=== PATIENT | female | born 1990 | race Caucasian/White ===

== ENCOUNTER 2024-08-05 02:42 | Outpatient (CLI) | payer OTHER, SELFPAY ==
--- NOTE | 2024-08-05 20:36 | PDOC.EEG ---
Neurology EEG EEG: [facility] Department of Neurology EEG REPORT Date of Recordin08/05/24 Interpreting Physician: Dr. Luma Tidwell PCP/Referring Provider: Dr. Joceline Esquivel Reason for study: Mounika Dawkins is a 34 year-old with recent episode of LOC concerning for seizure. Current Medications: Home Medications ?Medication ?Instructions ?Recorded ?Confirmed ?Type L norgest/E estradiol-E estrad 1 tab PO DAILY 07/03/24 07/24/24 History 0.15 mg-30 mcg (84)/10 mcg(7) tabs,3mos (Jaimiess) cholecalciferol (vitamin D3) 50 50 mcg PO DAILY 07/03/24 07/24/24 History mcg (2,000 unit) capsule multivitamin 1 tab PO DAILY 07/03/24 07/24/24 History METHODS: A 21 channel digitized electroencephalogram was performed in the [facility]. The 10/20 international system of electrode placement was used and bipolar and referential electrode montages were recorded. In addition to EEG the patient was monitored for EKG and lateral/vertical eye movements. Activation procedures of photic stimulation and hyperventilation were performed if applicable. Video was used during activation procedures and during events where applicable. The duration of the recording was 30 minutes. DESCRIPTION OF EEG: The patient was noted to be awake and drowsy during the recording. During maximal wakefulness a 10-Hz posterior background rhythm was present which was well-modulated, symmetrical, reactive to eye opening, and of moderate voltage. With eye opening the background activity changed to a low voltage mixture of alpha, beta, and occasional theta range frequencies. Faster frequencies were present in the bilateral anterior head regions. There was a normal anterior-posterior voltage gradient. During drowsiness, there was attenuation of the posterior dominant background rhythm and vertex waves. No stage II sleep was recorded. Activating Procedures: Photic stimulation was performed which produced a symmetrical posterior driving response at various flash frequencies. Hyperventilation was performed with moderate effort and produced no physiological slowing of the background. EKG: EKG revealed normal sinus rhythm. INTERPRETATION: This EEG is normal during the awake and drowsy states as well as during photic stimulation and hyperventilation. PRIOR EEG: none CLINICAL CORRELATION: No focal regions of cerebral dysfunction or epileptiform activity was present. No sleep was recorded during the study which reduces the sensitivity of the exam. If seizure remains a part of the differential, consider a repeat sleep-deprived EEG or overnight ambulatory EEG. Epilepsy remains a clinical diagnosis and a normal EEG does not rule out epilepsy. Clinical correlation is advised. Luma Tidwell MD Date of service: 08/05/24
== END 2024-08-05 02:43 | disposition home or self-care (01) ==
LOC: RT 02:43
PROVIDERS: PCP Nurse Practitioner Family; Visit Provider Psychiatry & Neurology Neurology
DX: R40.4 Transient alteration of awareness (principal)
CPT/HCPCS: 95816